=== PATIENT | female | born 1940 | race Caucasian/White ===

== ENCOUNTER 2016-12-15 08:55 | Outpatient (CLI) | payer MEDICARE, BC ==
[2014-02-11 20:08] VITALS: O2SAT 97
== END 2016-12-15 08:56 | disposition home or self-care (01) | DRG 554 ==
LOC: CONVCARE 08:55
PROVIDERS: ATTEND Orthopaedic Surgery
DX: M17.0 Bilateral primary osteoarthritis of knee (principal)
CPT/HCPCS: 73564

== ENCOUNTER 2017-03-22 14:59 | Outpatient (CLI) | payer MEDICARE, BC ==
[2014-02-11 20:08] VITALS: O2SAT 97
== END 2017-03-22 15:00 | disposition home or self-care (01) | DRG 552 ==
LOC: CONVCARE 14:59
PROVIDERS: ATTEND Orthopaedic Surgery
DX: M54.5 Low back pain (principal); M48.06 Spinal stenosis, lumbar region
CPT/HCPCS: 72120

== ENCOUNTER 2017-09-25 08:52 | Day surgery (SDC) | payer MEDICARE, BC ==
[~2017-09-25 08:52] MED LIST: LIDOCAINE HCL 1% MPF SOL ONE; PROPOFOL 500 MG/50 ML EMU IV ONE
[2017-09-25 10:57] VITALS: TEMP 98.4
[2017-09-25 11:09] VITALS: BP 145/69; O2SAT 99
[2017-09-25 11:19] VITALS: PULSE 67; RESP 20
== END 2017-09-25 11:52 | disposition home or self-care (01) | DRG 951 ==
LOC: SURG 08:52
PROVIDERS: ATTEND Internal Medicine Gastroenterology
DX: Z12.11 Encounter for screening for malignant neoplasm of colon (principal); D12.5 Benign neoplasm of sigmoid colon; K57.30 Diverticulosis of large intestine without perforation or abscess without bleeding; Z86.010 Personal history of colon polyps; K64.8 Other hemorrhoids
CPT/HCPCS: J2001; J2704